=== PATIENT | female | born 1960 ===

== ENCOUNTER 2017-10-08 00:56 | Emergency (ER) | payer OTHER ==
[2017-10-08 01:06] VITALS: RESP 20; TEMP 97.2
[2017-10-08] MEDS ORDERED: SOLUMEDROL 125 MG/2 ML 125 MG/2 ML PDS IM ONE (01:28)
[2017-10-08] MEDS ORDERED: SOLUMEDROL 125 MG/2 ML 125 MG/2 ML PDS ONE (01:35)
[2017-10-08 03:04] VITALS: BP 117/87; PULSE 84; O2SAT 95
== END 2017-10-08 02:10 | disposition home or self-care (01) ==
LOC: ED 00:56
DX: L50.9 Urticaria, unspecified (principal)
CPT/HCPCS: 99282; J2930

== ENCOUNTER 2018-01-29 09:54 | Emergency (ER) | payer OTHER ==
[2018-01-29 10:02] VITALS: RESP 24; O2SAT 94
[2018-01-29] MEDS ORDERED: MORPHINE SULFATE 10 MG/ML SOL IV ONE (10:35)
[2018-01-29] MEDS ORDERED: SODIUM CHLORIDE 0.9% FLUSH 10 ML SOL IV PRN (10:36)
[2018-01-29] MEDS ORDERED: KETOROLAC TROMETHAMINE 30 MG/ML SOL IV ONE (10:36)
[2018-01-29] MEDS ORDERED: MORPHINE SULFATE 10 MG/ML SOL ONE (10:37)
[2018-01-29] MEDS ORDERED: KETOROLAC TROMETHAMINE 30 MG/ML SOL ONE (10:37)
[2018-01-29 11:31] VITALS: TEMP 98.2
[2018-01-29 12:04] VITALS: BP 144/93; PULSE 88
== END 2018-01-29 11:52 | disposition home or self-care (01) ==
LOC: ED 09:54
DX: S42.021A Displaced fracture of shaft of right clavicle, initial encounter for closed fracture (principal); W01.0XXA Fall on same level from slipping, tripping and stumbling without subsequent striking against object, initial encounter
CPT/HCPCS: 70460; 71250; 72125; 74176; 96374; 96375; 99284; 99285; J1885; J2270

== ENCOUNTER 2018-02-06 09:53 | Outpatient (CLI) | payer OTHER ==
[2018-01-29 10:02] VITALS: O2SAT 94
== END 2018-02-06 09:54 | disposition home or self-care (01) ==
LOC: CONVCARE 09:53
PROVIDERS: ATTEND Orthopaedic Surgery
DX: S42.001G Fracture of unspecified part of right clavicle, subsequent encounter for fracture with delayed healing (principal); W19.XXXA Unspecified fall, initial encounter; M79.1 Myalgia
CPT/HCPCS: 73000

== ENCOUNTER 2018-03-21 15:30 | Outpatient (CLI) | payer OTHER ==
[2018-01-29 10:02] VITALS: O2SAT 94
== END 2018-03-21 15:31 | disposition home or self-care (01) ==
LOC: CONVCARE 15:30
PROVIDERS: ATTEND Orthopaedic Surgery
DX: S42.002D Fracture of unspecified part of left clavicle, subsequent encounter for fracture with routine healing (principal); T14.90XA Injury, unspecified, initial encounter
CPT/HCPCS: 73000

== ENCOUNTER 2018-05-09 09:42 | Outpatient (CLI) | payer OTHER ==
[2018-01-29 10:02] VITALS: O2SAT 94
== END 2018-05-09 09:43 | disposition home or self-care (01) ==
LOC: CONVCARE 09:42
PROVIDERS: ATTEND Orthopaedic Surgery
DX: S42.001D Fracture of unspecified part of right clavicle, subsequent encounter for fracture with routine healing (principal)
CPT/HCPCS: 73000

== ENCOUNTER 2018-08-28 11:00 | Outpatient (CLI) | payer BC, OTHER ==
[2018-01-29 10:02] VITALS: O2SAT 94
== END 2018-08-28 11:01 | disposition home or self-care (01) ==
LOC: CONVCARE 11:00
PROVIDERS: ATTEND Orthopaedic Surgery
DX: S42.001D Fracture of unspecified part of right clavicle, subsequent encounter for fracture with routine healing (principal)
CPT/HCPCS: 73000